=== PATIENT | male | born 1990 | race Caucasian/White ===

== ENCOUNTER 2020-10-10 08:16 | Emergency (ER) | payer MEDICAID ==
[~2020-10-10] VITALS: Ht 172.7 cm; Wt 84.8 kg
[2020-10-10 08:18] VITALS: Ht 172.7 cm; Wt 84.8 kg
[2020-10-10 09:08] LABS: CALCIUM 8.6 mg/dL (8.5-10.1); CHLORIDE SERUM 102 mmol/L (98-107); GFR1 > 60 mL/min; GLUCOSE SERUM 143 mg/dL (74-106); POTASSIUM SERUM 3.4 mmol/L (3.5-5.1); SODIUM SERUM 137 mmol/L (136-145)
[2020-10-10 09:13] LABS: ALBUMIN 3.9 g/dL (3.4-5.0); ALKALINE PHOSPHATASE 87 U/L (46-116); ALT/SGPT 56 U/L (16-63); AST/SGOT 37 U/L (15-37); BILIRUBIN TOTAL 0.83 mg/dL (0.20-1.00)
[2020-10-10 09:16] LABS: BASOPHIL % 0.4 % (0-2); PLATELET COUNT 186 x10^3mcL (130-400)
[2020-10-10 14:41] VITALS: BP 121/83
== END 2020-10-10 14:41 | disposition home or self-care (01) ==
LOC: ED 08:16
PROVIDERS: Specialist
DX: S61.211A Laceration without foreign body of left index finger without damage to nail, initial encounter (principal); S68.115A Complete traumatic metacarpophalangeal amputation of left ring finger, initial encounter; S68.113A Complete traumatic metacarpophalangeal amputation of left middle finger, initial encounter; W31.89XA Contact with other specified machinery, initial encounter; Y93.89 Activity, other specified; Y92.89 Other specified places as the place of occurrence of the external cause; Y99.8 Other external cause status
CPT/HCPCS: 26910; J0690; J1885; J2001; J2060; J2405; J3010; J3490; J7030